=== PATIENT | female | born 1935 | race Caucasian/White ===

== ENCOUNTER 2019-08-12 12:40 | Inpatient (IN) | payer MEDICARE, OTHER ==
[~2019-08-12] VITALS: Ht 152.4 cm; Wt 50.8 kg
--- NOTE | 2019-08-12 12:42 | NUR ---
Pt is recieving NS 500ml on arrival. DR Aguilar aware.
--- NOTE | 2019-08-12 12:50 | NUR ---
Dr Aguilar at the bedside for MSE.
[2019-08-12 13:13] LABS: BASOPHILS % (AUTO) 0.3 % (0.0-2.0); EOSINOPHILS % (AUTO) 0.4 % (0.0-7.0); HEMATOCRIT 31.4 % (31.2-41.9); HEMOGLOBIN 10.6 g/dL (10.9-14.3); LYMPHOCYTES # (AUTO) 0.7 K/uL (20.0-40.0); LYMPHOCYTES % (AUTO) 6.7 % (20.5-51.5); MEAN CORPUSCULAR HEMOGLOBIN 30.8 uug (24.7-32.8); MEAN CORPUSCULAR HGB CONC 34 g/dL (32.3-35.6); MEAN CORPUSCULAR VOLUME 91.3 fL (75.5-95.3); MONOCYTES # (AUTO) 0.3 K/uL (2.0-10.0); MONOCYTES % (AUTO) 3.4 % (0.0-11.0); NEUTROPHILS # (AUTO) 8.7 K/uL (1.8-8.9); NEUTROPHILS % (AUTO) 89.2 % (38.5-71.5); PLATELET COUNT (AUTO) 302 K/uL (179-408); RED BLOOD CELL COUNT(AUTO) 3.44 MIL/uL (3.63-4.92); WHITE BLOOD COUNT (AUTO) 9.7 K/uL (3.8-11.8)
[2019-08-12 13:18] LABS: CREATININE 0.9 mg/dL (0.6-1.3); POTASSIUM 3.7 mmol/L (3.5-5.1)
[2019-08-12 13:25] LABS: BILIRUBIN,DIRECT 0.1 mg/dL (0.0-0.2); BILIRUBIN,TOTAL 0.4 mg/dL (0.2-1.0); TOTAL PROTEIN, SERUM 6.9 g/dL (6.4-8.2)
[2019-08-12] MEDS ORDERED: IV NORMAL SALINE 1000 ML BAG IV ONE ×2 (14:15)
[2019-08-12] MEDS ORDERED: CEFTRIAXONE 1 G in IV DEXTROSE 5% 50 ML IV ONE (14:15)
[2019-08-12] MEDS ORDERED: AZITHROMYCIN IV 500 MG in IV DEXTROSE 5% 250 ML IV ONE (14:15)
[2019-08-12] MEDS ORDERED: AZITHROMYCIN 500MG/ D5W 250ML IVPB **ER PYXIS ONLY IV ONE (14:21)
[2019-08-12] MEDS ORDERED: CEFTRIAXONE /D5W 50ML IVPB **ER PYXIS IV ONE (14:21)
[2019-08-12 14:29] LABS: *BILIRUBIN,URIN 1+ (NEGATIVE); *BLOOD, URINE NEGATIVE (NEGATIVE); *COLOR,URINE DARK YELLOW (YELLOW); *KETONES,URINE NEGATIVE (NEGATIVE); *UROBILINOGEN,URINE 0.2 E.U./dl (NORMAL); LEUKOCYTE ESTERASE ,URINE NEGATIVE (NEGATIVE); NITRITE, URINE NEGATIVE (NEGATIVE); PH,URINE 5.5 (5.0-8.0); UGLUCOSE NEGATIVE (NEGATIVE)
[2019-08-12 14:46] LABS: *CLARITY,URINE HAZY (CLEAR); RBC,URINE 0-3 /HPF (0-3); WBC,URINE 0-3 /HPF (0-3)
[2019-08-12 14:47] LABS: MUCUS,URINE MANY /LPF (0-FEW); SQUAMOUS EPITHELIAL CELL,UR FEW /HPF (NONE SEEN)
[2019-08-12] MEDS ORDERED: ONDANSETRON 4 MG/2 ML VIAL IV PRN (15:00)
[2019-08-12] MEDS ORDERED: MAGNESIUM HYDROXIDE 30 ML LIQUID UDC PO PRN (15:00)
--- NOTE | 2019-08-12 15:20 | NUR ---
Spoke to [facility], to pt's case manger. Pt to be admitted to [facility] in [facility].
[2019-08-12 15:29] LABS: THYROID STIMULATING HORMONE 5.71 mIU/mL (0.358-3.740)
[2019-08-12 16:10] VITALS: BP 115/51
[2019-08-12] MEDS: IV NS 1000 ML 1,000 ML IV PRN (16:23)
--- NOTE | 2019-08-12 18:26 | NUR ---
Admitted an 84 years old Armenian speaking female pt. from ED at around 1610. Pt here for c/o syncope and hypotension. Pt. A/OX4 Armenian speaking only, verbally responsive and able to make her needs known. Pt. Full code with NKDA. Currently on Regular diet, tolerated dinner. Pt. ambulatory with 1 person standy assist. Received with 20G LFA PIV, started IV fluid 0.9 NS @ 75 cc/hr. On monitor NSR. Skin assessment reveal on skin issues, pt. skin intact. Pt. continent to both B&B. Pt. oriented to unit and staff. Safety measures in place. Kept pt. clean and dry. All pt. needs attended and met. Will endorse to next shift accordingly.
[2019-08-13 00:28] VITALS: BP 116/46
[2019-08-13] MEDS: HYDROCODONE/APAP 5-325MG TABLET PO PRN ×2 (01:46→10:09)
[2019-08-13] MEDS: IV NS 1000 ML 1,000 ML IV PRN ×2 (05:19→22:56)
[2019-08-13 06:28] LABS: BASOPHILS # (AUTO) 0.1 K/uL (0.0-8.0); BASOPHILS % (AUTO) 0.4 % (0.0-2.0); EOSINOPHILS # (AUTO) 0.1 K/uL (0.0-0.7); EOSINOPHILS % (AUTO) 0.9 % (0.0-7.0); HEMATOCRIT 29.3 % (31.2-41.9); HEMOGLOBIN 9.6 g/dL (10.9-14.3); LYMPHOCYTES # (AUTO) 1.7 K/uL (20.0-40.0); LYMPHOCYTES % (AUTO) 11.8 % (20.5-51.5); MEAN CORPUSCULAR HEMOGLOBIN 30.2 uug (24.7-32.8); MEAN CORPUSCULAR HGB CONC 33 g/dL (32.3-35.6); MEAN CORPUSCULAR VOLUME 91.7 fL (75.5-95.3); MONOCYTES # (AUTO) 0.6 K/uL (2.0-10.0); MONOCYTES % (AUTO) 3.7 % (0.0-11.0); NEUTROPHILS # (AUTO) 12.3 K/uL (1.8-8.9); NEUTROPHILS % (AUTO) 83.2 % (38.5-71.5); PLATELET COUNT (AUTO) 282 K/uL (179-408); WHITE BLOOD COUNT (AUTO) 14.8 K/uL (3.8-11.8)
[2019-08-13 06:44] LABS: CREATININE 0.7 mg/dL (0.6-1.3); MAGNESIUM 1.7 mg/dL (1.8-2.4); PHOSPHOROUS 2.1 mg/dL (2.5-4.9); POTASSIUM 3.6 mmol/L (3.5-5.1)
--- NOTE | 2019-08-13 08:00 | NUR ---
received pt. resting in bed Lithuanian speaking. pt. denies pain/ discomfort. pt. denies sob/ difficulty breathing. Safety measures in place call light within reach. will continue to monitor pt.
[2019-08-13 11:00] VITALS: BP 95/47
[2019-08-13] MEDS ORDERED: POTASSIUM CHLORIDE 20 MEQ POWDER PACKET PO ONE (14:45)
[2019-08-13] MEDS ORDERED: MAGNESIUM SULFATE/D5W 100 ML IV SCH (14:45)
[2019-08-13] MEDS: MAGNESIUM SULFATE/D5W 100 ML IV SCH ×2 (15:57→17:45)
[2019-08-13 16:00] VITALS: BP 97/61
[2019-08-13] MEDS ORDERED: NEUTRA PHOS PACKET PO ONE (16:15)
[2019-08-13] MEDS: ACETAMINOPHEN 325 MG TABLET PO PRN (17:59)
--- NOTE | 2019-08-13 18:30 | NUR ---
Pt. to be discharged home; however, pt. has elevated temperature of 101.4. Provided pt. with tylenol and will provide cooling measures. Pt. states she feels cold and has chills. Called Dr. Rex Palma but not able to get a hold of him. [employer] [facility] [employer] stated she will page the doctor.
[2019-08-13 20:30] VITALS: BP 107/47
--- NOTE | 2019-08-13 20:30 | NUR ---
spoke with dr Lara re: WBC increase, dry cough, and fever. Dr Lara ordered CBC, BMP, Phos, Mag for morning labs, Procalcitonin now, Ig Rocephin IV, 500 mg Azithromycin. pharmacy was notified of the orders.
[2019-08-13] MEDS: CEFTRIAXONE 1 G in IV DEXTROSE 5% 50 ML IV SCH (21:13)
[2019-08-13] MEDS ORDERED: CEFTRIAXONE 1 G VIAL IM SCH (22:00)
[2019-08-13] MEDS: AZITHROMYCIN IV 500 MG in IV DEXTROSE 5% 250 ML IV SCH (22:38)
[2019-08-14 04:30] VITALS: BP 122/60
[2019-08-14] MEDS: ACETAMINOPHEN 325 MG TABLET PO PRN (05:08)
[2019-08-14 06:25] LABS: BASOPHILS # (AUTO) 0.1 K/uL (0.0-8.0); BASOPHILS % (AUTO) 0.4 % (0.0-2.0); EOSINOPHILS # (AUTO) 0.3 K/uL (0.0-0.7); EOSINOPHILS % (AUTO) 2.1 % (0.0-7.0); HEMOGLOBIN 10.3 g/dL (10.9-14.3); LYMPHOCYTES # (AUTO) 1.5 K/uL (20.0-40.0); LYMPHOCYTES % (AUTO) 11.3 % (20.5-51.5); MEAN CORPUSCULAR HEMOGLOBIN 30.7 uug (24.7-32.8); MEAN CORPUSCULAR HGB CONC 34 g/dL (32.3-35.6); MEAN CORPUSCULAR VOLUME 89.8 fL (75.5-95.3); MONOCYTES # (AUTO) 0.4 K/uL (2.0-10.0); MONOCYTES % (AUTO) 3.3 % (0.0-11.0); NEUTROPHILS # (AUTO) 11.2 K/uL (1.8-8.9); NEUTROPHILS % (AUTO) 82.9 % (38.5-71.5); PLATELET COUNT (AUTO) 299 K/uL (179-408); RED BLOOD CELL COUNT(AUTO) 3.34 MIL/uL (3.63-4.92); WHITE BLOOD COUNT (AUTO) 13.5 K/uL (3.8-11.8)
[2019-08-14 06:40] LABS: CARBON DIOXIDE 22 mmol/L (21-32); CHLORIDE 106 mmol/L (98-107); CREATININE 0.5 mg/dL (0.6-1.3); GLUCOSE 99 mg/dL (74-106); MAGNESIUM 2.3 mg/dL (1.8-2.4); PHOSPHOROUS 1.7 mg/dL (2.5-4.9); POTASSIUM 3.5 mmol/L (3.5-5.1); UREA NITROGEN, BLOOD 4 mg/dL (7-18)
[2019-08-14 08:06] LABS: TRIIODOTHYRONINE, FREE 2.4 pg/mL (2.0-4.4)
--- NOTE | 2019-08-14 08:29 | NUR ---
received pt. resting in bed Upper Sorbian speaking. Used Upper Sorbian speaking nurse as bundle cutter. pt. denies pain/ discomfort. pt. denies sob/ difficulty breathing. Checked pt.'s temperature. Pt. has temperature of 98.5 not elevated. Pt. states she feels a little better. WBC at 130. Pt. still has dry cough. Safety measures in place call light within reach. will continue to monitor pt.
--- NOTE | 2019-08-14 09:31 | NUR ---
Pt.'s IV came out. Put in new IV at R forearm 22 gauge intact running prescribed fluid.
[2019-08-14 11:38] VITALS: BP 116/63
[2019-08-14 15:35] VITALS: BP 136/68
[2019-08-14] MEDS ORDERED: NEUTRA PHOS PACKET PO ONE (15:45)
[2019-08-14] MEDS: HYDROCODONE/APAP 5-325MG TABLET PO PRN (16:32)
[2019-08-14] MEDS: IV NS 1000 ML 1,000 ML IV PRN ×2 (16:32→20:51)
[2019-08-14] MEDS: CEFTRIAXONE 1 G in IV DEXTROSE 5% 50 ML IV SCH (20:50)
[2019-08-14 20:51] VITALS: BP 126/61
[2019-08-14] MEDS: AZITHROMYCIN IV 500 MG in IV DEXTROSE 5% 250 ML IV SCH (23:20)
[2019-08-15 05:50] LABS: CREATININE 0.6 mg/dL (0.6-1.3); MAGNESIUM 2.2 mg/dL (1.8-2.4); PHOSPHOROUS 2.6 mg/dL (2.5-4.9); POTASSIUM 3.7 mmol/L (3.5-5.1)
[2019-08-15 06:07] LABS: BASOPHILS # (AUTO) 0.1 K/uL (0.0-8.0); BASOPHILS % (AUTO) 0.7 % (0.0-2.0); EOSINOPHILS # (AUTO) 0.3 K/uL (0.0-0.7); EOSINOPHILS % (AUTO) 3.7 % (0.0-7.0); HEMATOCRIT 30.1 % (31.2-41.9); HEMOGLOBIN 10.2 g/dL (10.9-14.3); LYMPHOCYTES # (AUTO) 1.5 K/uL (20.0-40.0); LYMPHOCYTES % (AUTO) 16.6 % (20.5-51.5); MEAN CORPUSCULAR HEMOGLOBIN 30.7 uug (24.7-32.8); MEAN CORPUSCULAR HGB CONC 34 g/dL (32.3-35.6); MEAN CORPUSCULAR VOLUME 90.4 fL (75.5-95.3); MONOCYTES # (AUTO) 0.4 K/uL (2.0-10.0); MONOCYTES % (AUTO) 4.4 % (0.0-11.0); NEUTROPHILS # (AUTO) 6.6 K/uL (1.8-8.9); NEUTROPHILS % (AUTO) 74.6 % (38.5-71.5); PLATELET COUNT (AUTO) 322 K/uL (179-408); RED BLOOD CELL COUNT(AUTO) 3.33 MIL/uL (3.63-4.92); WHITE BLOOD COUNT (AUTO) 8.9 K/uL (3.8-11.8)
[2019-08-15 06:49] VITALS: BP 114/56
[2019-08-15] MEDS: IV NS 1000 ML 1,000 ML IV PRN (06:59)
[2019-08-15 11:23] VITALS: BP 113/59
--- NOTE | 2019-08-15 14:45 | NUR ---
PATIENT AOX3, NO DISTRESS, NO PAIN COMPLAIN SAFETY AND COMFORT REINFORCED
[2019-08-15 15:07] VITALS: BP 125/74
--- NOTE | 2019-08-15 18:58 | NUR ---
PATIENT AOX3, NO DISTRESS, NO PAIN COMPLAIN SAFETY AND COMFORT MAINTAINED THIS SHIFT PATIENT D/C WITH HER DAUGHTER, D/C PAPERS ARE SIGNED , TEACHING IS DONE, PHARMACY VERIFIED. PATIENT WENT DOWNSTAIR BY WHEELS CHAIR WITH [employer]
== END 2019-08-15 17:00 | disposition home or self-care (01) | DRG 640 ==
LOC: ER 12:40 → TELE3 15:40 → MEDSURG3 08-14 11:20
DX: E86.0 Dehydration (principal); J15.9 Unspecified bacterial pneumonia; J47.0 Bronchiectasis with acute lower respiratory infection; E61.1 Iron deficiency; M54.6 Pain in thoracic spine; I10 Essential (primary) hypertension; E88.09 Other disorders of plasma-protein metabolism, not elsewhere classified; I95.1 Orthostatic hypotension
CPT/HCPCS: 36415; 70030-TC; 70450; 71045; 71270; 83550; 83605; 83735; 84100; 84443; 84480; 84481; 85025; 87040; 87086; 87400; 93005; 93307; A4663; C1758; G0378; J0456; J0696; J3475; J3490; J7030; J7040; J7060